=== PATIENT | female | born 1955 | race Caucasian/White ===

== ENCOUNTER 2019-05-12 14:45 | Emergency (ER) | payer MEDICARE ==
[~2019-05-12] VITALS: Ht 177.8 cm; Wt 104.1 kg
[2019-05-12] MEDS ORDERED: DOXYCYCLINE HY100 MG PO (15:02)
[2019-05-12] MEDS ORDERED: TESSALON PERLE100 MG PO (15:04)
[2019-05-12] MEDS ORDERED: FLONASE ALLERG9.9 ML (15:04)
[2019-05-12] MEDS ORDERED: NAPROSYN500 MG PO (15:10)
[2019-05-12 15:31] VITALS: BP 138/58
== END 2019-05-12 15:25 | disposition home or self-care (01) ==
LOC: FSED 14:45
DX: J01.00 Acute maxillary sinusitis, unspecified (principal)
CPT/HCPCS: 99282

== ENCOUNTER 2019-05-19 08:03 | Emergency (ER) | payer MEDICARE ==
[~2019-05-19] VITALS: Ht 177.8 cm; Wt 106.6 kg
[~2019-05-19 08:03] MED LIST: DOXYCYCLINE HY100 MG PO; FLONASE ALLERG9.9 ML; NAPROSYN500 MG PO; TESSALON PERLE100 MG PO
--- OUTSIDE RECORDS SUMMARY | 2019-05-19 08:05 | XMS REPORT | Encounter Summary ---
Author Organization Unknown Address [address] [place] [id number] Phone [phone] Care Team Providers Care Education Professor Name Role Phone Dr. Hailey Jimenez 3 [phone] Reason for Visit Quality BMI DEPRESSION FALL; AWV Annual Wellness Visit Female (VFP); Annual physical - female with WWE; skin problem/rash Instructions 1. Adult health examination electrocardiogram visual acuity 2. Advance directive discussed with patient advance care planning: care instructions 3. Depression screening 4. At risk for falls preventing falls: care instructions 5. Body mass index 30+ - obesity learning about healthy weight body mass index: care instructions 6. Obesity 7. Screening for malignant neoplasm of colon fecal occult blood, stool 8. Screening for malignant neoplasm of breast MAMMO, screening, bilateral - PLEASE CALL PATIENT AND SCHEDULE HER AN APPOINTMENT. PLEASE FAX RESULTS TO [phone]. 9. Gynecologic examination pap, IG + HPV mRNA E6/E7 10. Immunization Prevnar 13 (PF) 0.5 mL intramuscular syringe 11. Immunization refused 12. Exposure to Hepatitis C virus hepatitis C virus RNA, quant, PCR, serum or plasma 13. Postmenopausal state bone density - PLEASE CALL PATIENT AND SCHEDULE HER AN APPOINTMENT. PLEASE FAX RESULTS TO [phone]. 14. Candidal intertrigo nystatin 100,000 unit/gram topical powder fluconazole 150 mg tablet 15. Lesion of skin of face dermatology referral 16. Blood in urine culture, urine urinalysis, dipstick 17. Ventricular premature complex 18. Electrocardiogram abnormal cardiology referral Discussion Note If you do not hear from us in 1 week after the labs are done ,pl call us for results f/u in 6 mths /prn Plan of Care Patient Instructions Screening Recommendations 1. Vaccines Pneumococcal: discussed today and information sent with patient in their Annual Wellness health folder Influenza: discussed today and information sent with patient in their Annual Wellness health folder Shingles: discussed today and information sent with patient in their Annual Wellness health folder Tetanus: discussed today and information sent with patient in their Annual Wellness health folder 2. Mammography Screening: discussed today and information sent with patient in their Annual Wellness health folder 3. Colorectal cancer Screening Colonoscopy: discussed today and information sent with patient in their Annual Wellness health folder Fecal Occult Blood: discussed today and information sent with patient in their Annual Wellness health folder 4. Bone Mass Measurement: discussed today 5. Pap test / Pelvic Exam Screening: discussed today 6. Eye Exam Screening: discussed today 7. Cholesterol Screening: discussed today 8. Diabetes Screening: discussed today It was good to see you in the office today for your Medicare Annual Wellness Visit. You have been provided some information on healthy nutrition, including a diet rich in fruits and vegetables, minimizing simple carbohydrates, salt, and saturated fats. I want to encourage regular cardiovascular exercise such as walking at least 30 minutes daily, 5 times per week. Please remember to schedule any preventive health measures that we talked about today. You have also been provided education on fall prevention and community- based lifestyle interventions to help reduce health risks and promote healthy living in your Annual Wellness folder. Reminders Provider Appointments None recorded. Lab Fecal Occult Blood, Stool 09/08/[address] [facility] Hepatitis C Virus RNA, Quant, PCR, Serum or Plasma 09/08/[address] [facility] Culture, Urine 09/08/[address] [facility] Urinalysis, Dipstick 09/08/[address] [facility] ([facility] Pap, IG + HPV mRNA E6/E7 09/08/[address] [facility] Referral Dermatology Referral 09/08/2018 [facility] Referral 09/12/2018 Procedures None recorded. Surgeries None recorded. Imaging MAMMO, Screening, Bilateral 09/08/2018 [facility] Bone Density 09/08/2018 [facility] Electrocardiogram 09/08/[address] [facility] ([facility]) [place] Medications Name Start Date fluconazole 150 mg tablet Take 1 tablet by oral route for 1 day. nystatin 100,000 unit/gram topical powder APPLY TO THE AFFECTED AREA(S) BY TOPICAL ROUTE 2 TIMES PER DAY Medications Administered None recorded. Vitals Height Weight BMI Blood Pressure 5 ft 10 in 237 lbs 34 kg/m2 128/74 mm[Hg] Lab Results Date Name Specimen Result Interpretation Description Value Range Status Address 09/08/2018 Hepatitis C Virus RNA, Quant, PCR, Serum or Plasma Normal Hepatitis C Antibody non-reactive non-reactive Final [facility]: [address] [place] [address], [place] Normal Signal to Cut-off 0.02 <1.00 [facility]: [address] [place] [address], [place] 09/08/2018 Culture, Urine Culture, Urine, Routine see note [facility]: [address] [place] [address], [place] 09/08/2018 Urinalysis, Dipstick Color Color yellow [facility] ([facility]) [place]: [address] [place] Color Appearance clear [place] ([facility]) [place]: [address] [place] Color Glucose negative [facility] ([facility]) [place]: [address] [place] Color Bilirubin negative [place]) [place]: [address] [place] Color Ketones negative [place] ([facility]) [place]: [address] [place] Color Specific [place] 1.020 [facility] ([facility]) [place]: [address] [place] Blood trace [place] [place]: [address] [place] Color PH 6.0 [facility] [place]: [address] [place] Color Protein negative [place] ([facility]) [place]: [address] [place] Color Urobilinogen 0.[address] [place]) [place]: [address] [place] Color Nitrites negative [facility] ([facility]) [place]: [address] [place] Color Leukocytes small [facility] ([facility]) [place]: [address] [place] Visual Acuity R Eye Uncorrected 20/[address] [place] ([facility]) [place]: [address] [place] L Eye Uncorrected 20/[address] [place]) [place]: [address] [place] Allergies Code Code System Name Reaction Severity Status Onset NKDA Problems Name Status Onset Date Source Hyperlipidemia Active 09/08/2018 Candidal Intertrigo Active 09/12/2018 Ventricular Premature Complex Active 09/12/2018 Blood in Urine Active 09/12/2018 Postmenopausal State Active 09/12/2018 Procedures Date Name Performed by 06/15/1992 Tubal Ligation Information not available Colonoscopy Information not available 09/08/2018 MAMMO, Screening, Bilateral [facility] [address] [place] [address] ([facility]) 09/08/2018 Bone Density [facility] [address] [place] [address] ([facility]) 09/08/2018 Electrocardiogram [facility] ([facility]) [place] [address] [place] [phone] ([facility] [address]) Vaccine List Vaccine Type Influenza, injectable, MDCK, preservative free, quadrivalent 03/15/2018 pneumococcal conjugate PCV 13 09/08/20180.5 mL Td(adult) unspecified formulation Social History Smoking Status Never Smoker Past Encounters 09/08/2018 Adult Health Examination; Advance Directive Discussed with Patient; Depression Screening; At Risk for Falls; Body Mass Index 30+ - Obesity; Obesity; Screening for Malignant Neoplasm of Colon; Screening for Malignant Neoplasm of Breast; Gynecologic Examination; Immunization; Immunization Refused; Exposure to Hepatitis C Virus; Postmenopausal State; Candidal Intertrigo; Lesion of Skin of Face; Blood in Urine; Ventricular Premature Complex; Electrocardiogram Abnormal Idalia Chaves MD: [address] [place] [phone], Ph. History of Present Illness Mini Cog Reported By: Patient Functional Ability: Personal/Social/ Draw a clock and write in the numbers in the correct place, and set the time to 10 minutes after 11 o'clock was completed correctly? Yes, 3 word recall: Your nurse or doctor will ask you to remember 3 words. In 5 minutes, they will ask you to repeat them. Patient recalled 3 words Note:Here for Awv , also c/o rash under breast x 1 yr rosalina when its hot , bumps under skin in both fore arms , also c/o Rt ankle swelling towards end of day only , resolves when she wakes up in am, No chest pain , no shortness of breath, no palpitations ,no dizziness , no diaphoresis , no weakness or numbness in arms or legs , no visual loss . Review of Systems:ROS as noted in the HPI Review of Systems Comprehensive General Adult ROS Reported By: Patient Physical Exam General Adult Exam (Female) Reported By: Patient Constitutional: General Appearance: well-developed, obese. Level of Distress: NAD. Ambulation: ambulating normally Psychiatric: Insight: good judgement. Mental Status: active and alert, normal mood, normal affect. Orientation: to time, to place, to person Head: Head: normocephalic, atraumatic Eyes: Lids and Conjunctivae: non-injected, no discharge, no pallor. Pupils: PERRLA. Corneas: grossly intact. EOM: EOMI. Lens: clear. Sclerae: non-icteric ENMT: Ears: no lesions on external ear, EACs clear, TMs clear. Hearing: no hearing loss. Nose: no lesions on external nose, nares patent, no septal deviation, nasal passages clear, no sinus tenderness, no nasal discharge. Lips, Teeth, and Gums: no mouth or lip ulcers, no bleeding gums, normal dentition. Oropharynx: moist mucous membranes, no erythema, no exudates, tonsils not enlarged Neck: Neck: supple, trachea midline, no masses, FROM. Lymph Nodes: no cervical LAD, no supraclavicular LAD, no axillary LAD. Thyroid: no enlargement, non- tender, no nodules Lungs: Respiratory effort: no dyspnea. Auscultation: breath sounds normal, good air movement, CTA except as noted, no wheezing, no rales/crackles, no rhonchi Cardiovascular: Heart Auscultation: RRR, normal S1, normal S2, no murmurs, no rubs, no gallops Breast: Breast Exam: ; senior javascript engineer in room. Breast: normal appearance, no masses, no abnormal secretions Abdomen: Bowel Sounds: normal. Inspection and Palpation: soft, non-distended, no tenderness, no guarding, no rebound tenderness, no masses, no CVA tenderness. Liver: non-tender, no hepatomegaly Musculoskeletal:: Motor Strength and Tone: normal motor strength, normal tone. Joints, Bones, and Muscles: normal movement of all extremities, no bony abnormalities, no contractures, no malalignment, no tenderness. Extremities: no cyanosis, no edema, no varicosities Neurologic: Gait and Station: normal gait, normal station. Cranial Nerves: grossly intact. Sensation: grossly intact Skin: Inspection and palpation: no rash, no lesions, no abnormal nevi, good turgor, no jaundice; mild erythema under emily breasts. Nails: normal Back: Thoracolumbar Appearance: normal curvature Notes: Alert, oriented x 3 , Cranial nerves 2-12 intact , Strength 5/5 in all 4 extremities , Gait - Normal , Speech - normal, Visual diaz - Intact , Sensations - intact in all 4 extremities, DTR's - 2 + in all 4 extremities , No tremors, cerebellar signs intact , straight line walking test & finger nose test - normal, Rhomberg- Negative<div>Emily breast symmetrical , no abnormal skin changes emily , no cervical , supraclavicular or axillary lymphadenopathy ,No masses or discomfort to palpation of emily breasts, no nipple d/c emily.<div>Normal female ext genitalia, no rash , no odor, no d/c at introitus, cervix - mid position ; no CMT , no adnexal mass , no precipitates in adnexal wall.</div><div>Anus- no hemorrhoids, normal anal tone, stool for occult blood sent .</div> </div>
--- OUTSIDE RECORDS SUMMARY | 2019-05-19 08:05 | XMS REPORT | Encounter Summary ---
Author Organization Unknown Address [address] [place] [address] Phone [phone] Care Team Providers Care Stripping Shovel Operator Name Role Phone Dr. Hailey Jimenez 3 [phone] Reason for Visit fatigue; loss of appetite; cough / congestion Instructions 1. Acute sinusitis fluticasone propionate 50 mcg/actuation nasal spray,suspension Augmentin 875 mg-125 mg tablet Cheratussin AC 10 mg-100 mg/5 mL oral liquid 2. Fatigue CBC w/ auto diff TSH, serum or plasma CMP, serum or plasma 3. Body mass index 30+ - obesity body mass index: care instructions learning about healthy weight lipid panel, serum 4. Obesity 5. Nasal congestion rapid flu (A+B) 6. Immunization refused Discussion Note: None recorded. Plan of Care Reminders Provider Appointments None recorded. Lab Rapid Flu (A+B) 12/30/2018 [facility] ([facility] [place] Lipid Panel, Serum 12/30/2018 [facility] CBC W/ Auto Diff 12/30/2018 [facility] TSH, Serum or Plasma 12/30/2018 [facility] CMP, Serum or Plasma 12/30/2018 [facility] Referral None recorded. Procedures None recorded. Surgeries None recorded. Imaging None recorded. Medications Name Start Date Augmentin 875 mg-125 mg tablet Take 1 tablet every 12 hours by oral route as directed for 10 days. Cheratussin AC 10 mg-100 mg/5 mL oral liquid Take 10 mL every 8 hours by oral route as needed for 5 days. fluticasone propionate 50 mcg/actuation nasal spray,suspension [place] 1 spray twice a day by intranasal route as directed for 14 days. nystatin 100,000 unit/gram topical powder APPLY TO THE AFFECTED AREA(S) BY TOPICAL ROUTE 2 TIMES PER DAY Medications Administered None recorded. Vitals Height Weight BMI Blood Pressure 5 ft 10 in 233.4 lbs 33.5 kg/m2 136/88 mm[Hg] Lab Results None recorded. Allergies Code Code System Name Reaction Severity Status Onset NKDA Problems Name Status Onset Date Source Hyperlipidemia Active 09/08/2018 Candidal Intertrigo Active 09/12/2018 Ventricular Premature Complex Active 09/12/2018 Blood in Urine Active 09/12/2018 Postmenopausal State Active 09/12/2018 Procedures Date Name Performed by 10/15/2018 Egd Information not available 06/15/1992 Tubal Ligation Information not available Colonoscopy Information not available Vaccine List Vaccine Type Influenza, injectable, MDCK, preservative free, quadrivalent 03/15/2018 pneumococcal conjugate PCV 13 09/08/20180.5 mL Td(adult) unspecified formulation Social History Smoking Status Never Smoker Past Encounters 12/30/2018 Acute Sinusitis; Fatigue; Body Mass Index 30+ - Obesity; Obesity; Nasal Congestion; Immunization Refused Duran Lacy MD: [address] [place] [address], Ph. History of Present Illness Note:Pt is complaining of runny nose,nasal congestion, productive cough and sinus pressure since 2-3 weeks ago. Denies sore throat, fever, sob, wheezing or chest pain.<div>Fatigue since 2 months ago.</div> Review of Systems:ROS as noted in the HPI Review of Systems None recorded. Physical Exam General Adult Exam (male) Reported By: Patient Constitutional: General Appearance: healthy-appearing, obese. Level of Distress: NAD. Ambulation: ambulating normally Eyes: Lids and Conjunctivae: non-injected, no discharge. EOM: EOMI ENMT: Ears: TMs clear. Nose: sinus tenderness, nasal discharge, nasal discharge--purulent, post nasal drip. Lips, Teeth, and Gums: no mouth or lip ulcers. Oropharynx: moist mucous membranes, no exudates, tonsils not enlarged, erythema Neck: Neck: supple, trachea midline. Lymph Nodes: cervical LAD Lungs: Auscultation: breath sounds normal Cardiovascular: Heart Auscultation: RRR, normal S1, normal S2, no murmurs. Neck vessels: no carotid bruits Musculoskeletal:: Motor Strength and Tone: normal, normal tone. Joints, Bones, and Muscles: normal movement of all extremities. Extremities: no edema Neurologic: Gait and Station: normal gait Skin: Inspection and palpation: no rash, no lesions
--- OUTSIDE RECORDS SUMMARY | 2019-05-19 08:05 | XMS REPORT ---
Author Author [facility] Organization [facility] Address Unknown Phone Unavailable Care Team Providers Care Quality Control Engineer Name Role Phone Unavailable Unavailable Payers Payer Name Policy Type Policy Number Effective Date Expiration Date Problems This patient has no known problems. Allergies, Adverse Reactions, Alerts Allergy Name Allergy Type Status Severity Reaction(s) Onset Date Inactive Date Treating Clinician Comments No Known Allergies DA Active U 2018-09-09 00:00:00 No Known Drug Intolerances DA Active U 2009-08-12 00:00:00 No Known Intolerances DA Active U 2009-08-12 00:00:00 Medications This patient has no known medications. Encounters Start Date/Time End Date/Time Encounter Type Admission Type Attending Clinicians Care Facility Care Department Encounter ID 2018-09-29 10:03:00 2018-09-29 10:03:00 Outpatient [facility] [id number] Results Test Description Test Time Test Comments Text Results Atomic Results Result Comments BASIC METABOLIC PANEL 2018-09-11 08:26:00 SODIUM (test code=NA) 143 mEq/L 134-147 POTASSIUM (test code=K) 3.7 mEq/L 3.4-5.0 CHLORIDE (test code=CL) 109 mEq/L 100-108 CARBON DIOXIDE (test code=CO2) 29 mEq/L 21-33 ANION GAP (test code=GAP) 9 0-20 GLUCOSE (test code=GLU) 89 mg/dL 70-110 BLOOD UREA NITROGEN (test code=BUN) 10 mg/dL 7-18 GLOMERULAR FILTRATION RATE (test code=GFR) 84.0 80-90 Units of measure=ml/min/1.73 m2 CREATININE (test code=CREAT) 0.7 mg/dL 0.6-1.3 CALCIUM (test code=CA) 8.6 mg/dL 8.0-10.5 CBC W/AUTO [id number] 07:43:00* Test Item Value Reference Range Comments WHITE BLOOD CELL (test code=WBC) 8.08 x10 3/uL 4.5-11.0 RED BLOOD CELL (test code=RBC) 4.44 x10 6/uL 3.54-5.02 HEMOGLOBIN (test code=HGB) 12.5 g/dL 11.0-15.0 HEMATOCRIT (test code=HCT) 39.1 % 33.0-45.0 MEAN CELL VOLUME (test code=MCV) 88.1 fL 81.0-99.0 MEAN CELL HGB (test code=MCH) 28.2 pg 27.0-33.0 MEAN CELL HGB CONCETRATION (test code=MCHC) 32.0 g/dL 33.0-37.0 RED CELL DISTRIBUTION WIDTH CV (test code=RDW) 13.0 % 11.5-14.5 RED CELL DISTRIBUTION WIDTH SD (test code=RDW-SD) 42.2 fL 37.0-54.0 PLATELET COUNT (test code=PLT) 269 x10 3/uL 150-400 MEAN PLATELET VOLUME (test code=MPV) 11.8 fL 7.0-9.0 NEUTROPHIL % (test code=NT%) 66.1 % 56.0-77.0 IMMATURE GRANULOCYTE % (test code=IG%) 0.2 % 0.0-2.0 LYMPHOCYTE % (test code=LY%) 25.6 % 14.0-32.0 MONOCYTE % (test code=MO%) 6.3 % 4.8-9.0 EOSINOPHIL % (test code=EO%) 1.1 % 0.3-3.7 BASOPHIL % (test code=BA%) 0.7 % 0.0-2.0 NUCLEATED RBC % (test code=NRBC%) 0.0 % 0-0 NEUTROPHIL # (test code=NT#) 5.33 x10 3/uL 2.0-7.6 IMMATURE GRANULOCYTE # (test code=IG#) 0.02 x10 3/uL 0.00-0.03 LYMPHOCYTE # (test code=LY#) 2.07 x10 3/uL 1.0-3.8 MONOCYTE # (test code=MO#) 0.51 x10 3/uL 0.1-0.8 EOSINOPHIL # (test code=EO#) 0.09 x10 3/uL 0.0-0.2 BASOPHIL # (test code=BA#) 0.06 x10 3/uL 0.0-0.2 NUCLEATED RBC # (test code=NRBC#) 0.00 x10 3/uL 0.0-0.1 MANUAL DIFF REQUIRED (test code=MDIFF) NO [id number] 09:26:00* Test Item Value Reference Range Comments TROPONIN-I (test code=TROPI) < 0.015 ng/mL 0.000-0.045 Negative: <=0.045 Positive: >=0.046 Correlation with serial results, other cardiac markers andclinical findings is necessary to determine the clinicalsignificance of this result. Results using different methodologies should not be comparedto one another as quantitative results may vary by method. COMMENTS: 3 troponins total (including troponin done in ED)[id number] 08:34:00* Test Item Value Reference Range Comments GLUBED (test code=GLUBED) 84 MG/DL 70-110 Performed by certified stem threshing machine operator at [facility] [id number] 05:16:00* Test Item Value Reference Range Comments TROPONIN-I (test code=TROPI) < 0.015 ng/mL 0.000-0.045 Negative: <=0.045 Positive: >=0.046 Correlation with serial results, other cardiac markers andclinical findings is necessary to determine the clinicalsignificance of this result. Results using different methodologies should not be comparedto one another as quantitative results may vary by method. COMMENTS: 3 troponins total (including troponin done in ED)B-TYPE NATRIURETIC [id number] 01:33:00* Test Item Value Reference Range Comments B-TYPE NATRIURETIC PEPTIDE (test code=BNP) 32.7 PG/ML 0-100 BASIC METABOLIC [id number] 01:03:00* Test Item Value Reference Range Comments SODIUM (test code=NA) 141 mEq/L 134-147 POTASSIUM (test code=K) 3.8 mEq/L 3.4-5.0 CHLORIDE (test code=CL) 108 mEq/L 100-108 CARBON DIOXIDE (test code=CO2) 29 mEq/L 21-33 ANION GAP (test code=GAP) 8 0-20 GLUCOSE (test code=GLU) 103 mg/dL 70-110 BLOOD UREA NITROGEN (test code=BUN) 11 mg/dL 7-18 GLOMERULAR FILTRATION RATE (test code=GFR) 84.0 80-90 Units of measure=ml/min/1.73 m2 CREATININE (test code=CREAT) 0.7 mg/dL 0.6-1.3 CALCIUM (test code=CA) 8.5 mg/dL 8.0-10.5 HEPATIC FUNCTION [id number] 01:03:00* Test Item Value Reference Range Comments TOTAL PROTEIN (test code=PROT) 6.8 g/dL 6.4-8.2 ALBUMIN (test code=ALB) 3.40 g/dL 3.4-5.0 BILIRUBIN TOTAL (test code=BILT) < 0.10 mg/dL 0.0-1.0 BILIRUBIN DIRECT (test code=BILD) < 0.10 MG/DL 0.0-0.30 BILIRUBIN INDIRECT (test code=BILIND) 0.00 MG/DL SGOT/AST (test code=AST) 12 IUnit/L 15-37 SGPT/ALT (test code=ALT) 20 IUnit/L 15-65 ALKALINE PHOSPHATASE TOTAL (test code=ALKP) 92 IUnit/L 20-125 [id number] 01:03:00* Test Item Value Reference Range Comments MAGNESIUM (test code=MAG) 2.10 mg/dL 1.8-2.4 T3 [id number] 01:03:00* Test Item Value Reference Range Comments T3 UPTAKE (test code=T3UP) 33.0 % 23.0-40.0 T4 (THYROXINE)2018-09-10 01:03:00* Test Item Value Reference Range Comments T4 (THYROXINE) (test code=T4) 8.9 mcg/dL 4.5-12.1 THYROID STIMULATING [id number] 01:03:00* Test Item Value Reference Range Comments THYROID STIMULATING HORMONE (test code=TSH) 3.54 0.42-5.47 Results in jesus-International Units/mL [id number] 01:03:00* Test Item Value Reference Range Comments TROPONIN-I (test code=TROPI) < 0.015 ng/mL 0.000-0.045 Negative: <=0.045 Positive: >=0.046 Correlation with serial results, other cardiac markers andclinical findings is necessary to determine the clinicalsignificance of this result. Results using different methodologies should not be comparedto one another as quantitative results may vary by method. URINALYSIS [id number] 00:55:00* Test Item Value Reference Range Comments UA COLOR (test code=COLU) YELLOW YEL/STRAW UA APPEARANCE (test code=APPU) CLEAR CLEAR UA GLUCOSE DIPSTICK (test code=DGLUU) NEGATIVE NEGATIVE UA BILIRUBIN DIPSTICK (test code=BILU) NEGATIVE NEGATIVE UA KETONE DIPSTICK (test code=KETU) NEGATIVE NEGATIVE UA SPECIFIC GRAVITY (test code=SGU) 1.009 1.005-1.030 UA BLOOD DIPSTICK (test code=CARLINE) NEGATIVE NEGATIVE UA PH DIPSTICK (test code=ATA) 6.0 5.0-7.0 UA PROTEIN DIPSTICK (test code=PROU) NEGATIVE NEGATIVE UA UROBILINIOGEN DIPSTICK (test code=URO) 0.2 mg/dL 0.2-1.0 UA NITRITE DIPSTICK (test code=SAEED) NEGATIVE NEGATIVE UA LEUKOCYTE ESTERASE DIPSTICK (test code=LEUU) TRACE NEGATIVE UA WBC (test code=WBCU) 0-3 WBC/HPF 0-3 UA RBC (test code=RBCU) 0-3 RBC/HPF 0-3 UA BACTERIA (test code=BACU) TRACE /HPF NONE SEEN UA SQUAMOUS CELLS (test code=SQU) 0-5 /HPF NONE SEEN COMMENTS: Clean CatchBASIC METABOLIC [id number] 00:55:00* Test Item Value Reference Range Comments SODIUM (test code=NA) 141 mEq/L 134-147 POTASSIUM (test code=K) 3.8 mEq/L 3.4-5.0 CHLORIDE (test code=CL) 108 mEq/L 100-108 CARBON DIOXIDE (test code=CO2) 29 mEq/L 21-33 ANION GAP (test code=GAP) 8 0-20 GLUCOSE (test code=GLU) 103 mg/dL 70-110 BLOOD UREA NITROGEN (test code=BUN) 11 mg/dL 7-18 GLOMERULAR FILTRATION RATE (test code=GFR) 84.0 80-90 Units of measure=ml/min/1.73 m2 CREATININE (test code=CREAT) 0.7 mg/dL 0.6-1.3 CALCIUM (test code=CA) 8.5 mg/dL 8.0-10.5 HEPATIC FUNCTION [id number] 00:55:00* Test Item Value Reference Range Comments TOTAL PROTEIN (test code=PROT) 6.8 g/dL 6.4-8.2 ALBUMIN (test code=ALB) 3.40 g/dL 3.4-5.0 BILIRUBIN TOTAL (test code=BILT) < 0.10 mg/dL 0.0-1.0 BILIRUBIN DIRECT (test code=BILD) < 0.10 MG/DL 0.0-0.30 BILIRUBIN INDIRECT (test code=BILIND) 0.00 MG/DL SGOT/AST (test code=AST) 12 IUnit/L 15-37 SGPT/ALT (test code=ALT) 20 IUnit/L 15-65 ALKALINE PHOSPHATASE TOTAL (test code=ALKP) 92 IUnit/L 20-125 [id number] 00:55:00* Test Item Value Reference Range Comments MAGNESIUM (test code=MAG) 2.10 mg/dL 1.8-2.4 T3 [id number] 00:55:00* Test Item Value Reference Range Comments T3 UPTAKE (test code=T3UP) 33.0 % 23.0-40.0 T4 (THYROXINE)2018-09-10 00:55:00* Test Item Value Reference Range Comments T4 (THYROXINE) (test code=T4) 8.9 mcg/dL 4.5-12.1 THYROID STIMULATING [id number] 00:55:00* Test Item Value Reference Range Comments THYROID STIMULATING HORMONE (test code=TSH) 0.42-5.47 [id number] 00:55:00* Test Item Value Reference Range Comments TROPONIN-I (test code=TROPI) < 0.015 ng/mL 0.000-0.045 Negative: <=0.045 Positive: >=0.046 Correlation with serial results, other cardiac markers andclinical findings is necessary to determine the clinicalsignificance of this result. Results using different methodologies should not be comparedto one another as quantitative results may vary by method. PROTHROMBIN [id number] 00:52:00* Test Item Value Reference Range Comments PROTHROMBIN TIME PATIENT (test code=PTP) 10.5 SECONDS 9.3-12.9 INTERNATIONAL NORMAL RATIO (test code=INR) 0.9 0.8-1.2 TARGET INR BY INDICATION Indication INR1. Prophylaxis of venous thrombosis 2.0 - 3.0 (orthopedic surgery), Prophylaxis of venous thrombosis (other than high-risk surgery), Treatment of Deep Vein Thrombosis/Pulmonary Embolism, Prevention of systemic embolism - Tissue heart valves, Acute Myocardial Infarction (to prevent systemic embolism), Valvular heart disease, Atrial Fibrillation, Bileaflet mechanical valve in aortic position.2. Mechanical prosthetic valves (high risk), 2.5 - 3.5 Presence of Lupus Anticoagulant or Antiphospholipid Antibodies, Prevention of systemic embolism - Acute Myocardial Infarction (to prevent recurrent infarct). THROMBOPLASTIN TIME [id number] 00:52:00* Test Item Value Reference Range Comments THROMBOPLASTIN TIME PARTIAL (test code=PTT) 26.7 Seconds 25.0-39.5 Therapeutic Range: 61.8-83.8 Sec Effective 07/13/2013 [id number] 00:52:00* Test Item Value Reference Range Comments D-DIMER (test code=DDIMER) 367 ng/mlFEU <=500 THROMBOSIS AND/OR PULMONARY EMBOLISM AND THE CLINICAL CUT- OFF VALUE FOR EXCLUSION (500 ng/mL FEU) OF THESE CONDITIONSIS VALIDATED BY THE MOTOCROSS RACER OF THE METHOD. A NEGATIVE D-DIMER RESULT WHEN COMBINED WITH A CLINICALASSESSMENT OF LOW PRETEST PROBABILITY HAS BEEN SHOWN TO HAVEA HIGH NEGATIVE PREDICTIVE VALUE OF DVT OR PE. D-DIMER VALUES >500 ng/mL FEU ARE NOT DIAGNOSTIC FOR DVT, PEor DIC WITHOUT OTHER CONFIRMATORY TESTS AND APPROPRIATECLINICAL EUALUATIONS. CBC W/AUTO [id number] 00:42:00* Test Item Value Reference Range Comments WHITE BLOOD CELL (test code=WBC) 8.94 x10 3/uL 4.5-11.0 RED BLOOD CELL (test code=RBC) 4.64 x10 6/uL 3.54-5.02 HEMOGLOBIN (test code=HGB) 13.1 g/dL 11.0-15.0 HEMATOCRIT (test code=HCT) 42.2 % 33.0-45.0 MEAN CELL VOLUME (test code=MCV) 90.9 fL 81.0-99.0 MEAN CELL HGB (test code=MCH) 28.2 pg 27.0-33.0 MEAN CELL HGB CONCETRATION (test code=MCHC) 31.0 g/dL 33.0-37.0 RED CELL DISTRIBUTION WIDTH CV (test code=RDW) 12.9 % 11.5-14.5 RED CELL DISTRIBUTION WIDTH SD (test code=RDW-SD) 43.1 fL 37.0-54.0 PLATELET COUNT (test code=PLT) 283 x10 3/uL 150-400 MEAN PLATELET VOLUME (test code=MPV) 11.1 fL 7.0-9.0 NEUTROPHIL % (test code=NT%) 61.6 % 56.0-77.0 IMMATURE GRANULOCYTE % (test code=IG%) 0.2 % 0.0-2.0 LYMPHOCYTE % (test code=LY%) 30.1 % 14.0-32.0 MONOCYTE % (test code=MO%) 6.3 % 4.8-9.0 EOSINOPHIL % (test code=EO%) 1.0 % 0.3-3.7 BASOPHIL % (test code=BA%) 0.8 % 0.0-2.0 NUCLEATED RBC % (test code=NRBC%) 0.0 % 0-0 NEUTROPHIL # (test code=NT#) 5.51 x10 3/uL 2.0-7.6 IMMATURE GRANULOCYTE # (test code=IG#) 0.02 x10 3/uL 0.00-0.03 LYMPHOCYTE # (test code=LY#) 2.69 x10 3/uL 1.0-3.8 MONOCYTE # (test code=MO#) 0.56 x10 3/uL 0.1-0.8 EOSINOPHIL # (test code=EO#) 0.09 x10 3/uL 0.0-0.2 BASOPHIL # (test code=BA#) 0.07 x10 3/uL 0.0-0.2 NUCLEATED RBC # (test code=NRBC#) 0.00 x10 3/uL 0.0-0.1 MANUAL DIFF REQUIRED (test code=MDIFF) NO - XR CHEST 2 [id number] 23:03:00 FAX: Lon Wong MD [place]: St: PRE Name: IRINEO BARGER [facility] : [birth year]18 52 Age/S: 63/F [address] [place] [address] Unit #: [id number] Loc: [place] [address] Phys: Lon Wong MD Acct: [id number] Dis Date: Status: PRE ER PHONE #: [phone] Exam Date: 09/09/20182300 FAX #: [phone] Reason: SOB EXAMS: CPT CODE: [id number] XR CHEST 2 V [id number] PROCEDURE: - XR CHEST 2 V INDICATION: 63 years Female, SOB. COMPARISON: None. FINDINGS: The cardiomediastinal silhouette and pulmonary vasculature are within normal limits for projection and degree of inspiration. No l obar consolidation, effusion, or pneumothorax. No pleural abnormalities ar e seen. No acute bony abnormalities. IMPRESSION: No acute intr athoracic abnormalities. SL: JHOmidH Electronically S igned by Joan Medina on 09/09/2018 at 2303 Reported a nd signed by: Shyam Medina M.D. CC: Lon Wong MD Technologist: Jaylin Mahan, RT(R) Trnscrd Date/Time/By: 09/09/2018 (2303) : By: [email or web address] Orig Print D/T: S: 09/09/2018 (2306) PAGE 1 Signed Report
--- OUTSIDE RECORDS SUMMARY | 2019-05-19 08:06 | XMS REPORT | Encounter Summary ---
Author Organization Unknown Address [address] [place] [address] Phone [phone] Care Team Providers Care Automatic Grinder Operator Name Role Phone Dr. Hailey Jimenez 3 [phone] Reason for Visit Annual Depression Screening; Annual Alcohol Misuse Screening; lab follow-up Instructions 1. Hyperlipidemia high cholesterol: care instructions rosuvastatin 10 mg tablet 2. Snoring sleep study referral - *Please call the patient and schedule* 3. Fatigue 4. Body mass index 30+ - obesity body mass index: care instructions learning about healthy weight 5. Alcohol consumption screening learning about alcohol misuse 6. Depression screening learning about depression Discussion Note: None recorded. Plan of Care Reminders Provider Appointments Return to Office on or around 04/13/2019 Duran Lacy MD Lab None recorded. Referral Sleep Study Referral 01/10/2019 [facility] Procedures None recorded. Surgeries None recorded. Imaging None recorded. Medications Name Start Date fluticasone propionate 50 mcg/actuation nasal spray,suspension [place] 1 spray twice a day by intranasal route as directed for 14 days. nystatin 100,000 unit/gram topical powder APPLY TO THE AFFECTED AREA(S) BY TOPICAL ROUTE 2 TIMES PER DAY rosuvastatin 10 mg tablet Take 1 tablet every day by oral route as directed for 30 days. Medications Administered None recorded. Vitals Height Weight BMI Blood Pressure 5 ft 10 in 235 lbs 33.7 kg/m2 110/80 mm[Hg] Lab Results Date Name Specimen Result Interpretation Description Value Range Status Address 12/30/2018 CBC W/ Auto Diff Wbc 7.37 x10*3/L 3.98-10.04 x10*3/L [facility]: [address] Rbc 5.02 10*12/L 3.93-5.22 10*12/L [facility]: [address] Hemoglobin 14.20 g/dL 11.20-15.70 g/dL [facility]: [address] [place] Hematocrit 43.8 % 34.1-44.9 % Final [facility]: [address] [place] Mcv 87.3 fL 80.0-100.0 fL Final [facility]: [address] [place] Mch 28.3 pg 25.6-32.2 pg Final [facility]: [address] [place] Mchc 32.4 g/dL 32.2-35.5 g/dL Final [facility]: [address] [place] RDW-SD 44.0 fL 36.4-46.3 fL Final [facility] [address] [facility] Platelet Count 314.0 k/uL 182.0-369.0 k/uL Final [facility]: [address] [place] High Mpv 11.7 fL 7.5-11.5 fL Final [facility] [address] [facility] Neut% 63.1 % 34.0-71.1 % Final [facility]: [address] [facility] Lymph% 29.3 % 19.3-51.7 % Final [facility]: [address] [facility] Mon% 6.4 % 4.7-12.5 % Final [facility]: [address] [facility] Eos% 0.7 % 0.7-5.8 % Final [facility]: [address] [facility] Baso% 0.5 % 0.1-1.2 % Final [facility]: [address] [place] Neut# 4.7 x10*3/L 1.6-6.1 x10*3/L Final [facility]: [address] [place] Lymph# 2.2 x10*3/L 1.2-3.7 x10*3/L Final [facility]: [address] [facility] Mon# 0.5 x10*3/L 0.2-0.9 x10*3/L Final [facility]: [address] [place] Eos# 0.05 x10*3/L 0.04-0.36 x10*3/L Final [facility]: [address] [place] Baso# 0.04 x10*3/L 0.01-0.08 x10*3/L Final [facility]: [address] [place] 12/30/2018 CMP, Serum or Plasma Alt 19 U/L 0-55 U/L Final [facility]: [address] [place] [address] Ast 16 U/L 5-34 U/L Final [facility]: [address] [place] [address] Low Bun 7.0 mg/dL 9.8-25.0 mg/dL Final [facility]: [address] Alk Phos 88 unit/L 40-150 unit/L Final [facility]: [address] Glucose 97 mg/dL 70-99 mg/dL Final [facility]: [address] Albumin 3.8 g/dL 3.4-5.1 g/dL Final [facility]: [address] Creatinine 0.71 mg/dL 0.57-1.11 mg/dL Final [facility]: [address] eGFR Non- >60 mL/min/1.73m2 Final [facility]: [address] Total Bilirubin 0.2 mg/dL 0.2-1.2 mg/dL Final [facility]: [address] eGFR - >60 mL/min/1.73m2 Final [facility]: [address] Sodium 141 mEq/L 135-145 mEq/L Final [facility]: [address] Potassium 4.0 mEq/L 3.5-5.1 mEq/L Final [facility]: [address] [place] [address] Chloride 105 mmol/L 98-110 mmol/L Final [facility]: [address] Total Protein 6.8 g/dL 6.1-8.2 g/dL Final [facility]: [address] [facility] [place] Calcium 9.6 mg/dL 8.6-10.4 mg/dL Final [facility]: [address] [place] Co2 23.3 mmol/L 20.0-32.0 mmol/L Final [facility]: [address] [place] [address], [place] Anion Gap 13 calc Final [facility]: [address], [place] 12/30/2018 Lipid Panel, Serum Low Hdl 37 mg/dL Final [facility]: [address] [place] [address], [place] High Triglyceride 212 mg/dL 0-150 mg/dL Final [facility]: [address] [place] [address], [place] VLDL (Calculated) 42 mg/dL Final [facility]: [address] cholesterol/HDL Ratio 7.6 mg/dL Final [facility]: [address] High non-HDL Cholesterol (Calculated) 244 mg/dL 0-160 mg/dL Final [facility]: [address] High Cholesterol 281 mg/dL 0-200 mg/dL Final [facility]: [address] High LDL (Calculated) 202 mg/dL 0-130 mg/dL Final [facility]: [address] [place] [address], [place] 12/30/2018 TSH, Serum or Plasma Tsh 1.448 uIU/mL 0.350-4.940 uIU/mL Final [facility]: [address] [place] [address], [place] 12/30/2018 Rapid Flu (A+B) Type Flu a negative [facility] ([facility]) [place]: [address] [place] [address] Type Flu B negative [facility] ([facility]) Pe Ell: [address] [place] [address] Allergies Code Code System Name Reaction Severity Status Onset 717480 RxNorm Augmentin Rash Active Problems Name Status Onset Date Source Hyperlipidemia Active 09/08/2018 Candidal Intertrigo Active 09/12/2018 Ventricular Premature Complex Active 09/12/2018 Blood in Urine Active 09/12/2018 Postmenopausal State Active 09/12/2018 Procedures Date Name Performed by 06/15/1992 Tubal Ligation Information not available Vaccine List Vaccine Type Influenza, injectable, MDCK, preservative free, quadrivalent 03/15/2018 pneumococcal conjugate PCV 13 09/08/20180.5 mL Td(adult) unspecified formulation Social History Tobacco Smoking Status Never Smoker Past Encounters 01/10/2019 Hyperlipidemia; Snoring; Fatigue; Body Mass Index 30+ - Obesity; Alcohol Consumption Screening; Depression Screening Duran Lacy MD: [address] [place] [address], Ph. 12/30/2018 Acute Sinusitis; Fatigue; Body Mass Index 30+ - Obesity; Obesity; Nasal Congestion; Immunization Refused Duran Lacy MD: [address] [place] [address], Ph. History of Present Illness Note:Coming for lab results. Review of Systems Comprehensive General Adult ROS Reported By: Patient Constitutional: Constitutional: no fever Eyes: Eyes: no vision change ENMT: Ears: no ear pain. Nose: no sinus problems. Mouth/Throat: no sore throat Cardiovascular: Cardiovascular: no chest pain, no palpitations, no lightheadedness Respiratory: Respiratory: no cough, no wheezing, no shortness of breath Gastrointestinal: Gastrointestinal: no abdominal pain, no nausea, no vomiting, no constipation, no diarrhea Neurologic: Neurologic: no loss of consciousness, no headaches Psychiatric: Psych: no depression, no alcohol abuse, no anxiety, no suicidal thoughts Endocrine: Endocrine: fatigue Physical Exam General Adult Exam (male) Reported By: Patient Constitutional: General Appearance: healthy-appearing, obese. Level of Distress: NAD. Ambulation: ambulating normally Psychiatric: Insight: good judgement. Mental Status: active and alert, normal mood, normal affect. Orientation: to time, to place, to person. Memory: recent memory normal, remote memory normal Eyes: Lids and Conjunctivae: non-injected, no discharge ENMT: Lips, Teeth, and Gums: no mouth or lip ulcers. Oropharynx: moist mucous membranes Neck: Neck: supple, trachea midline. Thyroid: no enlargement, non-tender Lungs: Auscultation: breath sounds normal Cardiovascular: Heart Auscultation: RRR, normal S1, normal S2, no murmurs. Neck vessels: no carotid bruits Neurologic: Gait and Station: normal gait
--- NOTE | 2019-05-19 08:33 | Diagnostic Imaging Report ---
Chest, PA and lateral. History: Cough, congestion. Comparison: None available. Discussion: The cardiomediastinal silhouette and pulmonary vasculature are within normal limits. The lungs are clear without evidence of consolidation or effusion. There are no acute osseous abnormalities. IMPRESSION: No radiographic evidence of acute cardiopulmonary abnormality. Signed by: Kong Herzog MD on 05/19/2019 8:30 AM
[2019-05-19] MEDS ORDERED: DOXYCYCLINE HY200 MG PO (08:34)
[2019-05-19] MEDS ORDERED: VENTOLIN HFA18 GM PO (08:34)
[2019-05-19] MEDS ORDERED: TESSALON PERLE100 MG PO (08:34)
[2019-05-19] MEDS ORDERED: POLYTRIM EYE DR10 ML OU (08:34)
== END 2019-05-19 09:00 | disposition home or self-care (01) ==
LOC: FSED 08:03
DX: R05 Cough (principal); J20.9 Acute bronchitis, unspecified; H10.023 Other mucopurulent conjunctivitis, bilateral
CPT/HCPCS: 71046; 99283